=== PATIENT | male | born 1955 | race Caucasian/White ===

== ENCOUNTER → 2017-05-14 | Outpatient (CLI) | payer BC ==
--- NOTE | 2017-05-14 18:20 | REP ---
MRI cervical spine without contrast: History: Cervical degenerative disc disease. Chronic neck pain and left arm and shoulder pain. No known injury. Comparison MRI study is from 09/28/2013. Technique: Sagittal and axial T1 and T2-weighted scans are acquired in the usual fashion with and without fat saturation. Sequences include spin echo, turbo spin-echo, and STIR imaging sequences. MRI findings: Cervical vertebral body heights are preserved and alignment is normal. Cortical and medullary bone signal intensity is normal. Craniocervical junction is unremarkable. Cervical cord is normal in coarse caliber and signal intensity on T1 and T2-weighted scans. No extra vertebral abnormality is appreciated. Axial and sagittal T1 and T2-weighted scans at C2-3 a show no significant abnormality. At C3-4, there is a small central disc protrusion indenting the ventral margin of the thecal sac unchanged from the comparison study. This does not contact or compress the cord. No neural foraminal narrowing is seen at C3-4. At C4-5, there is mild diffuse disc bulging indenting the ventral margin of the thecal sac but not compressing the cord. There is minimal ligamentum flavum hypertrophy. No central canal stenosis is seen. These findings are unchanged. At C5-6, there is also mild diffuse disc bulging. Mild bilateral uncovertebral spurring is seen left a little more prominent than right. No cord compression is seen. At C6-7, there is moderate diffuse disc bulging centrally. This effaces the ventral subarachnoid space and contacts but not does not visibly flattened the ventral margin of the cord. This is unchanged when compared with the prior study. There is mild uncovertebral spurring bilaterally at C6-7. At C7-T1, there is no significant abnormality. Impression: Stable degenerative spondylosis changes. No cord compressive lesion is seen. Signed by Darryl Franklin MD 05/14/2017 08:28 P
== END ==
LOC: M RAD 16:04
PROVIDERS: ATTEND Physician Assistant
DX: M47.892 Other spondylosis, cervical region (principal)

== ENCOUNTER → 2018-03-18 | Outpatient (CLI) | payer BC | END | disposition home or self-care (01) | LOC: M PAIN 14:45 | DX: G89.29 Other chronic pain (principal); M79.1 Myalgia; M47.812 Spondylosis without myelopathy or radiculopathy, cervical region; M46.92 Unspecified inflammatory spondylopathy, cervical region; I10 Essential (primary) hypertension; E78.5 Hyperlipidemia, unspecified; K21.9 Gastro-esophageal reflux disease without esophagitis; F33.9 Major depressive disorder, recurrent, unspecified; M50.30 Other cervical disc degeneration, unspecified cervical region; Z79.899 Other long term (current) drug therapy; Z87.891 Personal history of nicotine dependence | CPT/HCPCS: G0463 ==

== ENCOUNTER → 2018-04-07 | Outpatient (CLI) | payer BC ==
[~2018-04-07] MED LIST: BUPIVACAINE HCL 0.25% 10 ML VIAL As Ordered; BUPIVACAINE HCL 0.25% 30 ML VIAL As Ordered; TRIAMCINOLONE ACETONIDE SUSP 40 MG/ML VIAL (J3301) As Ordered; diazePAM 5 MG TAB As Ordered; oxyCODONE 5MG TAB As Ordered
== END ==
LOC: M PAIN 11:30
DX: G89.29 Other chronic pain (principal); M79.1 Myalgia; M54.2 Cervicalgia; I10 Essential (primary) hypertension; E78.5 Hyperlipidemia, unspecified; K21.9 Gastro-esophageal reflux disease without esophagitis; F32.9 Major depressive disorder, single episode, unspecified; Z79.899 Other long term (current) drug therapy; Z87.891 Personal history of nicotine dependence
CPT/HCPCS: J3301

== ENCOUNTER → 2018-04-29 | Outpatient (CLI) | payer BC | LOC: M PAIN 15:00 | DX: M79.1 Myalgia (principal); M47.812 Spondylosis without myelopathy or radiculopathy, cervical region; M46.92 Unspecified inflammatory spondylopathy, cervical region; I10 Essential (primary) hypertension; K21.9 Gastro-esophageal reflux disease without esophagitis; Z87.891 Personal history of nicotine dependence | CPT/HCPCS: G0463 ==

== ENCOUNTER → 2018-06-12 | Outpatient (CLI) | payer BC ==
[~2018-06-12] MED LIST changes: +ONDANSETRON 4 MG ORAL DISINTEGRATING TAB (Q0162 PER 1MG) As Ordered; +diphenhydrAMINE 25 MG CAP As Ordered
== END ==
LOC: M PAIN 09:30
DX: G89.29 Other chronic pain (principal); M79.1 Myalgia; M54.2 Cervicalgia; I10 Essential (primary) hypertension; E78.5 Hyperlipidemia, unspecified; K21.9 Gastro-esophageal reflux disease without esophagitis; F32.9 Major depressive disorder, single episode, unspecified; Z79.899 Other long term (current) drug therapy; Z87.891 Personal history of nicotine dependence
CPT/HCPCS: J3301